=== PATIENT | male | born 1975 | race Caucasian/White ===

== ENCOUNTER 2017-09-26 08:47 | Emergency (ER) | payer BC ==
[2017-09-26 08:52] VITALS: BP 135/83
--- NOTE | 2017-09-26 09:16 | ER Document Report ---
ED General - General Chief Complaint: perineal bleeding Stated Complaint: SKIN SORE Time Seen by Provider: 09/26/17 08:58 TRAVEL OUTSIDE OF THE [place] IN LAST 30 DAYS: No - HPI Notes: 42 years old male with a history of perineum abscess 14 years ago, had surgically corrected. 2-3 days ago he noted some swelling in the same region which increased in size and this morning it drained off sanguineous fluid. Subsequently he came to the ER. Prior to that he went to the surgical center and they could not see him today. He denies any fever chills or other constitutional symptoms. Denies any difficulty in defecation or blood per rectum. Denies any dysuria frequency or hematuria. - Related Data Allergies/Adverse Reactions: Penicillins Allergy (Verified 09/26/17 08:51) Past Medical History - Social History Smoking Status: Unknown if Ever Smoked Drug Abuse: denies: None, Bath salts, Cocaine, Heroin, Marijuana, Methamphetamine, Prescription drugs, Other Family History: Reviewed & Not Pertinent - Past Medical History Cardiac Medical History: Denies: None, Hx Atrial Fibrillation, Hx Congestive Heart Failure, Hx Coronary Artery Disease, Hx DVT, Hx Heart Attack, Hx Hypercholesterolemia, Hx Hypertension, Hx Peripheral Vascular Disease, Hx Pulmonary Embolism, Hx Heart Murmur, Other Review of Systems - Review of Systems Constitutional: denies: No symptoms reported, See HPI, Chills, Diaphoresis, Fever, Malaise, Weakness, Other, Weight gain, Weight loss, Recent illness EENT: denies: No symptoms reported, See HPI, Eye pain, Eye discharge, Blurred vision, Tearing, Double vision, Ear pain, Ear discharge, Nose pain, Nose congestion, Nose discharge, Sinus pressure, Sinus discharge, Throat pain, Difficulty swallowing, Throat swelling, Mouth pain, Mouth swelling, Dental problem, Vertigo, Other Cardiovascular: denies: No symptoms reported, See HPI, Chest pain, Palpitations , Heart racing, Orthopnea, Dyspnea, Syncope, Dizziness, Lightheaded, Edema, Other, Paroxysmal Nocturnal Dysp Gastrointestinal: denies: No symptoms reported, See HPI, Abdomen distended, Abdominal pain, Diarrhea, Nausea, Vomiting, Constipation, Blood streaked bowels , Poor appetite, Poor fluid intake, Blood in vomit, Black stools, Rectal bleeding, Last bowel movement, Fecal incontinence, Other Genitourinary: denies: No symptoms reported, See HPI, Burning, Dysuria, Discharge, Frequency, Flank pain, Hematuria, Incontinence, Pain, Urgency, Retention, Other Male Genitourinary: denies: No symptoms reported, See HPI, Erectile dysfunction , Testicular pain, Penile discharge, Other Musculoskeletal: denies: No symptoms reported, See HPI, Back pain, Gout, Joint pain, Joint swelling, Muscle pain, Muscle stiffness, Neck pain, Deformity, Leg swelling, Ankle swelling, Other Neurological/Psychological: denies: No symptoms reported, See HPI, Confusion, Dementia, Depression, Hallucinations, Anxiety, Homicidal ideation, Sensory change, Weakness, Gait changes, Loss of power, Paralysis, Seizure, Lost consciousness, Headaches, Speech impairment, Numbness, Suicidal ideation, Tingling, Tremor, Other Physical Exam - Vital signs Vitals: Temp Pulse Resp BP Pulse Ox 98.3 F 69 17 135/83 H 97 09/26/17 08:49 09/26/17 08:49 09/26/17 08:49 09/26/17 08:49 09/26/17 08:49 - General General appearance: Appears well. No: Alert, Anxious, Combative, Lethargic, Unresponsive, Other In distress: Mild - HEENT Eyes: No: Normal, Pale conjunctiva, Periorbital ecchymosis, Periorbital edema, Scleral icterus, Tears, Other Conjunctiva: No: Normal, Icteric, Injected, Purulent discharge, Other Cornea: No: Normal, Corneal abrasion, Corneal ulcer, Dendrite, Embedded foreign body, Flourescein stain uptake, Opacified, Superficial foreign body, Other Pupils: No: PERRL, Dilated, Fixed, Pinpoint Pharynx: No: Normal, Blood in hypopharynx, Erythema, Exudate, Peritonsillar abscess, Post nasal drainage, Retropharyngeal abscess, Tonsillar hypertrophy, Uvular edema, Potential airway comprom., Other Neck: No: Normal, Anterior cervical chain, Posterior cervical chain, Brudzinski , Carotid bruit, Kernig's, Lymphadenopathy, Meningismus, Neck mass, Shotty nodes , Subcutaneous emphysema, Supple, Thyroid nodule, Thyromegally, Other - Respiratory Respiratory status: No respiratory distress. No: Respiratory distress, Agonal respirations, Cyanosis, Depressed respirations, Labored, Pursed lip breathing, Retractions, Tachypnea, Tripod position, Other - Cardiovascular Rhythm: Regular. No: Extrasystoles, Tachycardia, Bradycardia, Other Heart sounds: No: Normal auscultation, S1 appreciated, S2 appreciated Gallop: No: None auscultated, S3 gallop, S4 gallop - Abdominal Inspection: Normal. No: Caput medussa, Fresh incision, Gravid female, Healed incision, Striae, Wounds, Obese, Morbidly Obese, Other Distension: No: No distension, Distended, Tympanitic, Fluid wave, Distended bladder, Other Tenderness: No: Nontender, Tender, McBurney's point, Cook's sign, Guarding, Rebound, Other Organomegaly: No: No organomegaly, Hepatomegaly, Splenomegaly, Mass, Other - Rectal Notes: Examination of the perianal region exactly at 12 o'clock position there is 3 cm opening noted. Surrounded by no erythema no swelling no fluctuant mass or tenderness noted. It appears that the abscess has been drained by itself. - Genitourinary Inspection: Normal. No: Blood at meatus, Penile discharge, Other Tenderness: No: Nontender, Lesions, Testicle tender, Epididymis tender, Other Cremasteric reflex: Normal. No: Right reflex absent, Left reflex absent Scrotum: Normal Course - Vital Signs Vital signs: Temp Pulse Resp BP Pulse Ox 98.3 F 69 17 135/83 H 97 09/26/17 08:49 09/26/17 08:49 09/26/17 08:49 09/26/17 08:49 09/26/17 08:49 - Transfer of Care Notes: 09/26/17 09:24 Patient was explained in detail that the abscess has already been drained by itself, but he needs his antibiotic. If it reoccurs he has been asked to see the surgeon. Discharge - Discharge Clinical Impression: Perineal abscess, superficial Instructions: Abscess ([facility]) Additional Instructions: He has been asked to keep the wound clean, dressing change daily with antibiotic ointment, and take the antibiotic regularly Prescriptions: Doxycycline Hyclate 100 mg PO BID #30 capsule Referrals: LOLLY FOSTER MD [[facility]] - Follow up as needed
== END 2017-09-26 09:50 | disposition home or self-care (01) ==
LOC: ER 08:47
DX: L02.215 Cutaneous abscess of perineum (principal); L98.8 Other specified disorders of the skin and subcutaneous tissue
CPT/HCPCS: 99282

== ENCOUNTER → 2019-06-09 | Outpatient (CLI) | payer OTHER ==
--- NOTE | 2019-06-09 10:18 | RADIOLOGY REPORT (SQ) ---
EXAM DESCRIPTION: CT ABD/PELVIS WITH IV ONLY COMPLETED DATE/TIME: 06/09/2019 9:43 am REASON FOR STUDY: R10.33 PERIUMBILICAL PAIN, K62.5 HEMORRHAGE OF ANUS AND RECTUM R10.33 PERIUMBILIC AL PAIN K62.5 HEMORRHAGE OF ANUS AND RECTUM COMPARISON: None. TECHNIQUE: CT scan of the abdomen and pelvis performed using helical scanning technique with dynamic intravenous contrast injection. No oral contrast. Images reviewed with lung, soft tissue, and bone windows. Reconstructed coronal and sagittal MPR images reviewed. Delayed images for evaluation of the urinary system also acquired. All images stored on PACS. All CT scanners at this facility use dose modulation, iterative reconstruction, and/or weight based d osing when appropriate to reduce radiation dose to as low as reasonably achievable (ALARA). [facility]: Dose Right [facility]: CareDose [facility]: Dose Right [facility]: Teradose 4D [facility]: Gentronix CONTRAST TYPE AND DOSE: contrast/concentration: Isovue 350.00 mg/ml; Total Contrast Delivered: 100.0 ml; Total Saline Delivered: 72.0 ml RENAL FUNCTION: None required. The patient is less than 50 years old. RADIATION DOSE: CT Rad equipment meets quality standard of care and radiation dose reduction techniq ues were employed. CTDIvol: 12.1 - 13.8 mGy. DLP: 1369 mGy-cm.. LIMITATIONS: None. FINDINGS: LOWER CHEST: No significant findings. No nodules or infiltrates. LIVER: Normal size. No masses. No dilated ducts. SPLEEN: Normal size. No focal lesions. PANCREAS: No masses. No significant calcifications. No adjacent inflammation or peripancreatic fluid collections. Pancreatic duct not dilated. GALLBLADDER: No identified stones by CT criteria. No inflammatory changes to suggest cholecystitis. ADRENAL GLANDS: No significant masses or asymmetry. RIGHT KIDNEY AND URETER: No solid masses. No significant calcifications. No hydronephrosis or hyd roureter. LEFT KIDNEY AND URETER: No solid masses. No significant calcifications. No hydronephrosis or hydr oureter. AORTA AND VESSELS: No aneurysm. No dissection. Renal arteries, SMA, celiac without stenosis. RETROPERITONEUM: No retroperitoneal adenopathy, hemorrhage or masses. BOWEL AND PERITONEAL CAVITY: No masses or inflammatory changes. No free fluid or peritoneal masses. APPENDIX: Normal. PELVIS: No mass. No free fluid. Normal bladder. ABDOMINAL WALL: No masses. No hernias. BONES: No significant or acute findings. OTHER: No other significant finding. IMPRESSION: NO SIGNIFICANT OR ACUTE FINDING IN THE ABDOMEN OR PELVIS ON CT SCAN WITH IV CONTRAST. TECHNICAL DOCUMENTATION: JOB ID: [id number] Quality ID # [id number]: Final reports with documentation of one or more dose reduction techniques (e.g., Au tomated exposure control, adjustment of the mA and/or kV according to patient size, use of iterative reconstruction technique) 2010 [employer]- All Rights Reserved Reading location - IP/workstation name: [email or web address]
[2019-06-09 10:21] LABS: ALKALINE PHOSPHATASE 70 U/L (38-126); ANION GAP 10 (5-19); ASPARTATE AMINO TRANSFERASE 23 U/L (17-59); BILIRUBIN,DIRECT 0.2 mg/dL (0.0-0.4); BILIRUBIN,TOTAL 0.4 mg/dL (0.2-1.3); BLOOD UREA NITROGEN 17 mg/dL (7-20); CARBON DIOXIDE 24 mmol/L (22-30); CHLORIDE 106 mmol/L (98-107); GLUCOSE 101 mg/dL (75-110); POTASSIUM 4.7 mmol/L (3.6-5.0); TOTAL PROTEIN 6.4 g/dL (6.3-8.2)
[2019-06-09 10:41] LABS: ABSOLUTE EOSINOPHILS # (AUTO) 0.2 10^3/uL (0.0-0.6); ABSOLUTE LYMPHOCYTES (AUTO) 1.8 10^3/uL (0.5-4.7); ABSOLUTE MONOCYTES (AUTO) 0.6 10^3/uL (0.1-1.4); ABSOLUTE NEUT (AUTO) 5.1 10^3/uL (1.7-8.2); BASOPHILS % (AUTO) 0.5 % (0-2); EOSINOPHILS % (AUTO) 2.5 % (0-6); HEMATOCRIT 42.8 % (37.9-51.0); HEMOGLOBIN 14.9 g/dL (13.5-17.0); LYMPHOCYTES % (AUTO) 23.2 % (13-45); MEAN CORPUSCULAR HEMOGLOBIN 31.1 pg (27.0-33.4); MEAN CORPUSCULAR HGB CONC 34.7 g/dL (32.0-36.0); MEAN CORPUSCULAR VOLUME 89 fl (80-97); MONOCYTES % (AUTO) 8.4 % (3-13); PLATELET COUNT 181 10^3/uL (150-450); RED BLOOD COUNT 4.79 10^6/uL (4.35-5.55); SEGMENTED NEUTROPHILS % (AUTO) 65.4 % (42-78); TOTAL CELLS COUNTED % (AUTO) 100 %; WHITE BLOOD COUNT 7.7 10^3/uL (4.0-10.5)
== END ==
LOC: RAD 12:20
PROVIDERS: ATTEND Physician Assistant
DX: R10.33 Periumbilical pain (principal); K62.5 Hemorrhage of anus and rectum
CPT/HCPCS: 36415; 74177; 80053; 83690; 85025

== ENCOUNTER → 2019-11-26 | Outpatient (CLI) | payer OTHER ==
--- NOTE | 2019-11-26 12:21 | RADIOLOGY REPORT (SQ) ---
EXAM DESCRIPTION: CHEST PA/LATERAL COMPLETED DATE/TIME: 11/26/2019 9:30 am REASON FOR STUDY: COUGH COMPARISON: None. EXAM PARAMETERS: NUMBER OF VIEWS: two views TECHNIQUE: Digital Frontal and Lateral radiographic views of the chest acquired. RADIATION DOSE: NA LIMITATIONS: none FINDINGS: LUNGS AND PLEURA: No opacities, masses or pneumothorax. No pleural effusion. MEDIASTINUM AND HILAR STRUCTURES: No masses or contour abnormalities. HEART AND VASCULAR STRUCTURES: Heart normal size. No evidence for failure. BONES: No acute findings. HARDWARE: None in the chest. OTHER: No other significant finding. IMPRESSION: NO SIGNIFICANT RADIOGRAPHIC FINDING IN THE CHEST. TECHNICAL DOCUMENTATION: JOB ID: [id number] [employer]- All Rights Reserved Reading location - IP/workstation name: [email or web address]
== END ==
LOC: OD 09:05
PROVIDERS: ATTEND Physician Assistant
DX: R05 Cough (principal)
CPT/HCPCS: 71046

== ENCOUNTER → 2019-12-15 | Outpatient (CLI) | payer OTHER ==
--- NOTE | 2019-12-15 15:12 | NONINVASIVE CARDIOLOGY REPORT ---
December 15, 2019 Exercise nuclear stress test Indication: Chest pain Clinical history: 44-year-old male with left-sided chest pain. Exercise nuclear stress test was performed to evaluate for myocardial ischemia as cause of symptoms. Procedure The patient was brought to the stress lab. After informed consent was obtained the patient was connected to the EKG leads. Rest images were obtained according to standard protocol after administration of 14.8 mCi of technetium 99m sestamibi. Subsequently the patient exercised on the treadmill according to Agus protocol for a total of 10 minutes and 47 seconds. His basal heart rate of 81 bpm increased to a maximum heart rate of 153 bpm which was 87% of maximum predicted for his age. At this point patient was injected with 43.7 mCi of technetium 90 9M sestamibi according to standard protocol. The patient continued to exercise for about a minute and the test was stopped. His maximum workload was 13.4 METS. There were no EKG changes suggestive of myocardial ischemia during exercise or during recovery. The patient tolerated the exercise well. The heart rate and blood pressure responses were appropriate. The test was terminated due to patient fatigue and also because target heart rate was achieved. After period of rest, stress images were obtained according to standard protocol. Raw as well as processed images were reviewed. The images reveal normal contractility during stress as well as rest. Visually the ejection fraction is normal with normal contractility during stress as well as rest. Estimated ejection fraction is 54%. The TID ratio is 0.96. There is uniform uptake of radioisotope in the myocardium with no evidence of reversible perfusion defects. There is a small fixed inferobasal defect likely suggestive of diaphragmatic attenuation. Conclusion 1. No evidence of myocardial ischemia induced by exercise on electrocardiogram. 2. No evidence of myocardial ischemia on nuclear perfusion images. 3. Normal contractility during rest as well as stress. 4. Left ventricular ejection fraction estimated at 54%. MTDD
== END ==
LOC: RAD 07:40
PROVIDERS: ATTEND Internal Medicine
DX: R07.9 Chest pain, unspecified (principal); R06.02 Shortness of breath
CPT/HCPCS: 93017; 78452; A9500; Q9969